=== PATIENT | female | born 1955 | race Caucasian/White ===

== ENCOUNTER 2017-07-04 15:19 | Emergency (ER) | payer BC ==
[~2017-07-04] VITALS: Ht 172.7 cm; Wt 62.8 kg
[~2017-07-04 15:19] MED LIST: MOTRIN800 MG PO
[2017-07-04] MEDS ORDERED: PERCOCET 5/31 TABLET PO (19:47)
[2017-07-04 19:56] VITALS: BP 142/81
== END 2017-07-04 19:57 | disposition home or self-care (01) ==
LOC: EME 15:19
DX: M54.12 Radiculopathy, cervical region (principal); I10 Essential (primary) hypertension
CPT/HCPCS: 72040; 99281; 99284